=== PATIENT | female | born 1955 ===

== ENCOUNTER 2020-06-12 08:07 | Day surgery (SDC) | payer OTHER ==
[2020-06-12] MEDS ORDERED: LEVOFLOXACIN500 MG PO (15:48)
[2020-06-12] MEDS ORDERED: NAPROXEN500 MG PO (15:48)
== END 2020-06-12 19:40 | disposition home or self-care (01) ==
LOC: CIR.AMB 08:07
PROVIDERS: ATTEND Obstetrics & Gynecology
DX: N95.0 Postmenopausal bleeding (principal)